=== PATIENT | female | born 1985 | race Caucasian/White ===

== ENCOUNTER 2017-08-31 13:57 | Emergency (ER) | payer BC ==
[2017-08-31 14:40] LABS: BASOPHILS % (AUTO) 0.4 % (0.0-5.0); EOSINOPHILS % (AUTO) 0.7 % (0.0-8.0); HEMATOCRIT 40.3 % (36-48); LYMPHOCYTES % (AUTO) 16.6 % (21.0-51.0); MEAN CORPUSCULAR HEMOGLOBIN 32.6 pg (27.0-33.0); MEAN CORPUSCULAR HGB CONC 34.9 g/dL (32.0-36.0); MEAN CORPUSCULAR VOLUME 93.4 fL (79-99); MONOCYTES % (AUTO) 6.2 % (3.0-13.0); NEUTROPHILS % (AUTO) 76.1 % (40.0-77.0); PLATELET COUNT (AUTO) 276 K/uL (130-400); RED BLOOD CELL COUNT(AUTO) 4.32 MIL/uL (4.00-5.50); RED CELL DISTRIBUTION WIDTH 12.1 % (11.0-15.5); WHITE BLOOD COUNT (AUTO) 13.2 K/uL (4.8-10.8)
[2017-08-31 14:50] LABS: CREATININE 0.8 mg/dL (0.5-1.5)
== END 2017-08-31 15:46 | disposition home or self-care (01) ==
LOC: EDH 13:57
DX: O20.0 Threatened abortion (principal); I10 Essential (primary) hypertension; E07.9 Disorder of thyroid, unspecified; Z3A.08 8 weeks gestation of pregnancy
CPT/HCPCS: 36415; 76801; 80048; 84702; 85025; 86900; 86901